=== PATIENT | male | born 1970 | race Caucasian/White ===

== ENCOUNTER 2021-03-11 22:56 | Observation (INO) ==
[2021-03-12 00:39] LABS: Hemoglobin 13.4 g/dL (12.9-16.9)
[2021-03-12 00:41] LABS: Hematocrit 39.7 % (37.5-50.1); Immature Platelets 12.6 % (1.1-6.1); Mean Corpuscular HGB Conc 33.8 g/dL (31.6-35.5); Mean Corpuscular Hemoglobin 34.1 pg (28.0-33.3); Mean Platelet Volume 12.3 fL (9.4-12.4); Red Blood Count 3.93 M/mcL (4.19-5.50); Red Cell Distribution Width 11.1 % (11.5-14.5); White Blood Count 4.8 K/mcL (4.3-11.1)
[2021-03-12 00:48] LABS: Bilirubin,Urine Negative (Negative); Blood,Urine Negative (Negative); Clarity,Urine Clear (Clear); Color,Urine Light-Yellow (Yellow); Glucose,Urine (UA) >=1000 mg/dL (Normal); Hyaline Casts,Urine Few per lpf (None Seen); Ketones,Urine Negative (Negative); Leukocyte Esterase,Urine Negative (Negative); Nitrite,Urine Negative (Negative); Protein,Urine Negative (Neg-Trace); RBC,Urine 0-3 per hpf (0-3); Specific Gravity,Urine 1.022 (1.010-1.025); Squamous Epithelial Cell,Urine Few per hpf (None-Few); Urobilinogen,Urine Normal (Normal); WBC,Urine 0-3 per hpf (0-3)
[2021-03-12 00:51] LABS: VBG HCO3 22 mEq/L (21-27); VBG PCO2 38 mmHg (41-51); VBG PH 7.36 pH Units (7.32-7.42); VBG PO2 88 mmHg (25-50)
[2021-03-12 01:07] LABS: BUN/Creatinine Ratio 15 (6-26); Blood Urea Nitrogen 9 mg/dL (6-20); Calcium 8.7 mg/dL (8.6-10.3); Carbon Dioxide 20 mEq/L (23-29); Chloride 98 mEq/L (98-107); Glucose 336 mg/dL (70-105); Osmolality,Calculated 282 (280-300); Potassium 3.7 mEq/L (3.5-5.1); Sodium 130 mEq/L (136-145); eGFR For African Americans > 60 (> 60); eGFR For Non-African Americans > 60 (> 60)
[2021-03-12] MEDS ORDERED: Naloxone 0.4 MG/ML INJ IVP PRN (09:30)
[2021-03-12] MEDS ORDERED: Ondansetron ODT 4 MG TAB.RAPDIS SL PRN (09:30)
[2021-03-12] MEDS ORDERED: Dextrose Gel 15 GM/37.5 ML TUBE PO PRN ×2 (09:32)
[2021-03-12] MEDS ORDERED: *HR* Dextrose 50 % in Water (Vial) 50 ML VIAL IVP PRN (09:32)
[2021-03-12] MEDS ORDERED: D5% in Water 1,000 ML IVC PRN (09:32)
[2021-03-12] MEDS ORDERED: Nitroglycerin 0.4 MG TAB.SUBL SL PRN (09:33)
[2021-03-12] MEDS: lisinopriL 10 MG TABLET PO SCH (10:47)
[2021-03-12 11:02] LABS: Amphetamine Screen,Urine Negative ng/mL (Cutoff=1000); Barbiturate Screen,Urine Negative ng/mL (Cutoff=200); Benzodiazepines Screen,Urine Negative ng/mL (Cutoff=200); Cannabinoid Screen,Urine Negative ng/mL (Cutoff = 50); Cocaine Screen,Urine Negative ng/mL (Cutoff= 300); Opiate Screen,Urine Negative ng/mL (Cutoff=300); Phencyclidine Screen,Urine Negative ng/mL (Cutoff=25)
[2021-03-12] MEDS ORDERED: Acetaminophen/Butalbital/CaffeineTABLET PO PRN (11:06)
[2021-03-12] MEDS: Insulin LISPRO 300 UNITS/3 ML VIAL SUBQ SCH ×2 (11:48→17:01)
[2021-03-12] MEDS ORDERED: Insulin LISPRO 300 UNITS/3 ML VIAL SUBQ SCH (12:00)
[2021-03-12] MEDS ORDERED: Isovue-370 500 ML BOTTLE IVP ONE (15:54)
[2021-03-12] MEDS ORDERED: Metoclopramide 10 MG/2 ML VIAL IVP ONE (15:56)
[2021-03-12] MEDS: carvediloL 6.25 MG TABLET PO SCH (17:01)
[2021-03-12] MEDS: MethylPREDNISolone 40 MG/ML VIAL IVP SCH ×2 (17:48→22:50)
[2021-03-12] MEDS: Insulin DETEMIR 100 UNIT/ML X5UNITS SUBQ SCH (20:33)
[2021-03-12] MEDS ORDERED: Divalproex (24 HR) 250 MG TABLET PO SCH (21:00)
[2021-03-13] MEDS ORDERED: Regadenoson 0.4 MG/5 ML SYRINGE IVP ONE (06:12)
[2021-03-13] MEDS ORDERED: Pregabalin 25 MG CAPSULE PO SCH (09:00)
[2021-03-13 09:42] LABS: Basophils % 0.2 %; Hematocrit 45.1 % (37.5-50.1); Hemoglobin 15.5 g/dL (12.9-16.9); Immature Granulocytes % 0.4 % (0-4); Lymphocytes # 0.6 K/mcL (0.6-4.6); Lymphocytes % 5.6 %; Mean Corpuscular HGB Conc 34.4 g/dL (31.6-35.5); Mean Corpuscular Hemoglobin 34.1 pg (28.0-33.3); Mean Corpuscular Volume 99.1 fL (83.0-100.0); Mean Platelet Volume 12.1 fL (9.4-12.4); Monocytes # 0.5 K/mcL (0.0-1.3); Monocytes % 5.2 %; Neutrophils # 9.2 K/mcL (1.6-8.9); Red Blood Count 4.55 M/mcL (4.19-5.50); Segmented Neutrophils % 88.6 %; White Blood Count 10.4 K/mcL (4.3-11.1)
[2021-03-13 09:43] LABS: Platelet Count 96 K/mcL (140-400)
[2021-03-13] MEDS: carvediloL 6.25 MG TABLET PO SCH (09:53)
[2021-03-13] MEDS: Insulin LISPRO 300 UNITS/3 ML VIAL SUBQ SCH ×2 (09:53→13:02)
[2021-03-13] MEDS: Insulin DETEMIR 100 UNIT/ML X5UNITS SUBQ SCH (09:53)
[2021-03-13] MEDS: MethylPREDNISolone 40 MG/ML VIAL IVP SCH (09:53)
[2021-03-13] MEDS: lisinopriL 10 MG TABLET PO SCH (09:53)
[2021-03-13 10:03] LABS: Chol/HDL Ratio 2.8 (0-4.9); Magnesium 1.7 mg/dL (1.6-2.6); Phosphorous 4.5 mg/dL (2.7-4.5)
[2021-03-13 12:53] LABS: Estimated Average Glucose 255 mg/dl; Hemoglobin A1C 10.5 %
[2021-03-13 14:07] VITALS: BP 136/84
[2021-03-14] MEDS ORDERED: predniSONE 20 MG TABLET PO SCH (09:00)
== END 2021-03-13 16:30 | disposition home or self-care (01) ==
LOC: EMEROOARM 22:56 → 3BNU 22:56 → SUATTDRO 03-12 09:40 → 3BNU 03-12 10:20
PROVIDERS: ADMIT Family Medicine; ATTEND Internal Medicine

== ENCOUNTER 2021-03-22 16:06 | Observation (INO) ==
[2021-03-22 18:38] LABS: Basophils % 0.8 %; Hematocrit 40.2 % (37.5-50.1); Immature Granulocytes % 0.3 % (0-4); Red Cell Distribution Width 11.5 % (11.5-14.5)
[2021-03-22 18:40] LABS: Basophils # 0.1 K/mcL (0.0-0.2); Eosinophils # 0.2 K/mcL (0.0-0.6); Eosinophils % 2.1 %; Hemoglobin 13.9 g/dL (12.9-16.9); Immature Platelets 15.2 % (1.1-6.1); Lymphocytes % 14.3 %; Mean Corpuscular HGB Conc 34.6 g/dL (31.6-35.5); Mean Corpuscular Hemoglobin 34.2 pg (28.0-33.3); Mean Corpuscular Volume 98.8 fL (83.0-100.0); Mean Platelet Volume 12.7 fL (9.4-12.4); Monocytes # 0.7 K/mcL (0.0-1.3); Monocytes % 9.5 %; Neutrophils # 5.2 K/mcL (1.6-8.9); Red Blood Count 4.07 M/mcL (4.19-5.50); White Blood Count 7.1 K/mcL (4.3-11.1)
[2021-03-22 18:41] LABS: Platelet Count 64 K/mcL (140-400)
[2021-03-22 18:56] LABS: BUN/Creatinine Ratio 15 (6-26); Blood Urea Nitrogen 8 mg/dL (6-20); Calcium 9.4 mg/dL (8.6-10.3); Carbon Dioxide 31 mEq/L (23-29); Chloride 98 mEq/L (98-107); Glucose 283 mg/dL (70-105); Osmolality,Calculated 283 (280-300); Potassium 4.6 mEq/L (3.5-5.1); Sodium 132 mEq/L (136-145); eGFR For African Americans > 60 (> 60); eGFR For Non-African Americans > 60 (> 60)
[2021-03-22 18:58] LABS: INR 1.2; Prothrombin Time 13.5 Seconds (9.4-12.1)
[2021-03-22 19:00] LABS: Activated Partial Thrombo Time 33.3 Seconds (26.0-36.0)
[2021-03-22] MEDS ORDERED: Naloxone 0.4 MG/ML INJ IVP PRN (20:09)
[2021-03-22] MEDS ORDERED: Acetaminophen 325 MG TABLET PO PRN (20:09)
[2021-03-22] MEDS ORDERED: D5% in Water 1,000 ML IVC PRN (22:33)
[2021-03-22] MEDS ORDERED: Dextrose Gel 15 GM/37.5 ML TUBE PO PRN ×2 (22:33)
[2021-03-22] MEDS ORDERED: *HR* Dextrose 50 % in Water (Vial) 50 ML VIAL IVP PRN (22:33)
[2021-03-22] MEDS ORDERED: Insulin LISPRO 300 UNITS/3 ML VIAL SUBQ SCH (22:45)
[2021-03-23 06:17] LABS: Hematocrit 39.8 % (37.5-50.1); Hemoglobin 13.5 g/dL (12.9-16.9); Immature Platelets 15.2 % (1.1-6.1); Mean Corpuscular HGB Conc 33.9 g/dL (31.6-35.5); Mean Corpuscular Hemoglobin 33.8 pg (28.0-33.3); Mean Corpuscular Volume 99.7 fL (83.0-100.0); Red Blood Count 3.99 M/mcL (4.19-5.50); Red Cell Distribution Width 11.7 % (11.5-14.5); White Blood Count 5.7 K/mcL (4.3-11.1)
[2021-03-23] MEDS: Insulin LISPRO 300 UNITS/3 ML VIAL SUBQ SCH ×5 (06:18→17:22)
[2021-03-23 06:34] LABS: BUN/Creatinine Ratio 15 (6-26); Blood Urea Nitrogen 10 mg/dL (6-20); Calcium 9.1 mg/dL (8.6-10.3); Carbon Dioxide 28 mEq/L (23-29); Chloride 98 mEq/L (98-107); Glucose 353 mg/dL (70-105); Osmolality,Calculated 287 (280-300); Potassium 4.1 mEq/L (3.5-5.1); Sodium 132 mEq/L (136-145); eGFR For African Americans > 60 (> 60); eGFR For Non-African Americans > 60 (> 60)
[2021-03-23] MEDS ORDERED: traZODone 50 MG TABLET PO PRN (16:23)
[2021-03-23] MEDS: carvediloL 6.25 MG TABLET PO SCH (17:25)
[2021-03-23] MEDS ORDERED: *HR* Heparin 5,000 UNIT/ML VIAL SQ SCH (18:00)
[2021-03-23] MEDS ORDERED: Insulin LISPRO 300 UNITS/3 ML VIAL SUBQ SCH (21:00)
[2021-03-23] MEDS ORDERED: Divalproex (24 HR) 250 MG TABLET PO SCH (21:00)
[2021-03-23] MEDS: Pregabalin 25 MG CAPSULE PO SCH (21:10)
[2021-03-24 07:39] LABS: BUN/Creatinine Ratio 20 (6-26); Blood Urea Nitrogen 11 mg/dL (6-20); Carbon Dioxide 29 mEq/L (23-29); Chloride 101 mEq/L (98-107); Glucose 268 mg/dL (70-105); Osmolality,Calculated 289 (280-300); Potassium 4.1 mEq/L (3.5-5.1); Sodium 135 mEq/L (136-145); eGFR For African Americans > 60 (> 60); eGFR For Non-African Americans > 60 (> 60)
[2021-03-24 08:13] LABS: Estimated Average Glucose 269 mg/dl
[2021-03-24] MEDS: Pregabalin 25 MG CAPSULE PO SCH (09:03)
[2021-03-24] MEDS: carvediloL 6.25 MG TABLET PO SCH (09:03)
[2021-03-24] MEDS: Insulin LISPRO 300 UNITS/3 ML VIAL SUBQ SCH ×4 (09:10→12:23)
[2021-03-24 11:29] VITALS: BP 114/77
== END 2021-03-24 14:16 | disposition home or self-care (01) ==
LOC: EMEROOARM 16:06 → 3ANU 16:06
PROVIDERS: ADMIT Student in an Organized Health Care Education/Training Program; ATTEND Student in an Organized Health Care Education/Training Program

== ENCOUNTER 2022-07-07 09:31 | Observation (INO) ==
[2022-07-07 10:44] LABS: Eosinophils # 0.1 K/mcL (0.0-0.6); Eosinophils % 1.6 %; Hematocrit 40.5 % (37.5-50.1); Hemoglobin 14.1 g/dL (12.9-16.9); Immature Granulocytes % 0.3 % (0-4); Lymphocytes # 0.8 K/mcL (0.6-4.6); Lymphocytes % 19.9 %; Mean Corpuscular HGB Conc 34.8 g/dL (31.6-35.5); Mean Corpuscular Hemoglobin 35.3 pg (28.0-33.3); Mean Corpuscular Volume 101.3 fL (83.0-100.0); Mean Platelet Volume 11.9 fL (9.4-12.4); Monocytes # 0.6 K/mcL (0.0-1.3); Monocytes % 16.3 %; Neutrophils # 2.3 K/mcL (1.6-8.9); Red Cell Distribution Width 11.9 % (11.5-14.5); Segmented Neutrophils % 60.9 %; White Blood Count 3.8 K/mcL (4.3-11.1)
[2022-07-07 10:45] LABS: Platelet Count 65 K/mcL (140-400)
[2022-07-07 10:52] LABS: Bacteria,Urine Few per hpf (None-Few); Bilirubin,Urine Negative (Negative); Blood,Urine Negative (Negative); Clarity,Urine Clear (Clear); Color,Urine Yellow (Yellow); Glucose,Urine (UA) >=1000 mg/dL (Normal); Ketones,Urine Negative (Negative); Leukocyte Esterase,Urine Negative (Negative); Mucus,Urine Few per lpf (None-Few); Nitrite,Urine Negative (Negative); Protein,Urine Trace mg/dL (Neg-Trace); RBC,Urine 0-3 per hpf (0-3); Specific Gravity,Urine 1.029 (1.010-1.025); Squamous Epithelial Cell,Urine Few per hpf (None-Few); Urobilinogen,Urine Normal (Normal); WBC,Urine 0-3 per hpf (0-3)
[2022-07-07 11:38] LABS: Alanine Aminotransferase 28 Units/L (7-52); Albumin/Globulin Ratio 0.5 (1.1-2.2); Alkaline Phosphatase 143 Units/L (34-104); Aspartate Amino Transferase 64 Units/L (13-39); BUN/Creatinine Ratio 15 (6-26); Bilirubin,Direct 0.5 mg/dL (0.0-0.2); Bilirubin,Indirect 2.2 mg/dL (0.0-1.0); Bilirubin,Total 2.7 mg/dL (0.3-1.0); Blood Urea Nitrogen 9 mg/dL (6-20); Calcium 8.7 mg/dL (8.6-10.3); Carbon Dioxide 28 mEq/L (23-29); Chloride 97 mEq/L (98-107); Globulin 5.5 g/dL (2.4-3.5); Glucose 274 mg/dL (70-105); Lipase 51 Units/L (11-82); Osmolality,Calculated 274 (280-300); Potassium 4.3 mEq/L (3.5-5.1); Sodium 128 mEq/L (136-145); Total Protein 8.5 g/dL (6.4-8.9); Troponin I < 0.03 ng/mL (< 0.04)
[2022-07-07] MEDS ORDERED: Furosemide 20 MG/2 ML VIAL IVP ONE (13:00)
[2022-07-07] MEDS ORDERED: Naloxone 0.4 MG/ML INJ IVP PRN (13:35)
[2022-07-07] MEDS ORDERED: Ondansetron ODT 4 MG TAB.RAPDIS SL PRN (13:35)
[2022-07-07] MEDS ORDERED: MOM Conc 10 ML UD.LIQ PO PRN (13:35)
[2022-07-07] MEDS ORDERED: Melatonin 3 MG TABLET PO PRN (13:35)
[2022-07-07] MEDS ORDERED: Mag Hydrox/Al Hydrox/Simeth 30 ML UDC PO PRN (13:35)
[2022-07-07] MEDS ORDERED: *HR* Dextrose 50 % in Water (Syg) 50 ML SYRINGE IVP PRN (13:38)
[2022-07-07] MEDS ORDERED: Dextrose Gel 15 GM/37.5 ML TUBE PO PRN ×2 (13:38)
[2022-07-07] MEDS ORDERED: D5% in Water 1,000 ML IVC PRN (13:38)
[2022-07-07] MEDS: Insulin LISPRO 300 UNITS/3 ML VIAL SUBQ SCH (16:09)
[2022-07-07 16:58] LABS: Amylase,Peritoneal Fluid 14 Units/L (No Ref Range); Glucose,Peritoneal Fluid 278 mg/dL (No Ref Range); LDH,Peritoneal Fluid 57 Units/L (No Ref Range); Total Protein,Peritoneal Fluid < 2.0 g/dL
[2022-07-07 18:14] LABS: RBC,Peritoneal Fluid < 2000 RBC/mcL
[2022-07-07 19:13] LABS: Appearance of Peritoneal Fl CLEAR (Clear)
[2022-07-07 19:15] LABS: Basophils,Peritoneal Fluid 0 %; Eosinophils,Peritoneal Fluid 0 %
[2022-07-07] MEDS ORDERED: Insulin LISPRO 300 UNITS/3 ML VIAL SUBQ SCH (21:00)
[2022-07-08 03:04] LABS: Immature Granulocytes % 0.3 % (0-4); Red Cell Distribution Width 11.9 % (11.5-14.5)
[2022-07-08 03:06] LABS: Basophils # 0.1 K/mcL (0.0-0.2); Basophils % 1.3 %; Eosinophils # 0.1 K/mcL (0.0-0.6); Eosinophils % 2.8 %; Hematocrit 36.9 % (37.5-50.1); Hemoglobin 12.7 g/dL (12.9-16.9); Immature Platelets 10.3 % (1.1-6.1); Lymphocytes # 0.9 K/mcL (0.6-4.6); Lymphocytes % 23.2 %; Mean Corpuscular HGB Conc 34.4 g/dL (31.6-35.5); Mean Corpuscular Hemoglobin 34.8 pg (28.0-33.3); Mean Corpuscular Volume 101.1 fL (83.0-100.0); Mean Platelet Volume 11.9 fL (9.4-12.4); Monocytes # 0.7 K/mcL (0.0-1.3); Monocytes % 17.6 %; Red Blood Count 3.65 M/mcL (4.19-5.50); Segmented Neutrophils % 54.8 %; White Blood Count 3.9 K/mcL (4.3-11.1)
[2022-07-08 03:07] LABS: Neutrophils # 2.1 K/mcL (1.6-8.9); Platelet Count 61 K/mcL (140-400)
[2022-07-08 03:27] LABS: Alanine Aminotransferase 22 Units/L (7-52); Albumin 2.4 g/dL (3.5-5.7); Albumin/Globulin Ratio 0.5 (1.1-2.2); Alkaline Phosphatase 119 Units/L (34-104); Aspartate Amino Transferase 47 Units/L (13-39); BUN/Creatinine Ratio 13 (6-26); Bilirubin,Direct 0.9 mg/dL (0.0-0.2); Bilirubin,Indirect 1.7 mg/dL (0.0-1.0); Bilirubin,Total 2.6 mg/dL (0.3-1.0); Blood Urea Nitrogen 8 mg/dL (6-20); Calcium 8.2 mg/dL (8.6-10.3); Carbon Dioxide 28 mEq/L (23-29); Chloride 100 mEq/L (98-107); Globulin 4.4 g/dL (2.4-3.5); Glucose 179 mg/dL (70-105); Osmolality,Calculated 277 (280-300); Potassium 3.7 mEq/L (3.5-5.1); Sodium 132 mEq/L (136-145); Total Protein 6.8 g/dL (6.4-8.9)
[2022-07-08 03:39] LABS: Thyroid Stimulating Hormone 2.722 mcIU/mL (0.340-5.600)
[2022-07-08] MEDS: Insulin LISPRO 300 UNITS/3 ML VIAL SUBQ SCH ×2 (08:14→13:11)
[2022-07-08] MEDS ORDERED: Furosemide 40 MG TABLET PO SCH (09:00)
[2022-07-08] MEDS ORDERED: Furosemide 20 MG TABLET PO SCH (09:15)
[2022-07-08 11:23] LABS: Hepatitis B Surface Antigen Nonreactive (Nonreactive)
[2022-07-08 11:44] VITALS: BP 123/75; PULSE 88; TEMP 98.4; O2SAT 98
[2022-07-08 11:52] LABS: Hepatitis C Virus Antibody Nonreactive (Nonreactive)
[2022-07-08 11:53] LABS: Hepatitis B Core IgM Nonreactive (Nonreactive)
[2022-07-08 11:55] LABS: Hepatitis A Antibody IgM Nonreactive (Nonreactive)
[2022-07-09 14:05] LABS: Fluid Source for Albumin PERITONEAL
[2022-07-09 21:40] LABS: Fluid Source for Bilirubin ASCITES FLUID; Fluid Source for Triglycerides ASCITES FLUID
[2022-07-10 13:02] LABS: Triglycerides,Body Fluid 27 mg/dL
== END 2022-07-08 15:04 | disposition home or self-care (01) ==
LOC: EMEROOARM 09:31 → 3NENU 09:31 → SUATTDRO 13:53 → 3NENU 15:27
PROVIDERS: ADMIT Internal Medicine; ATTEND Registered Nurse